=== PATIENT | female | born 1995 | race Caucasian/White ===

== ENCOUNTER 2023-04-09 18:09 | Emergency (ER) | payer BC, SELFPAY ==
[2023-04-09] MEDS: ZOFRAN ODT (ORALLY DISINTEGRATING) 4 MG PO (18:28)
[2023-04-09 18:55] LABS: % Basophils 0.3 % (0-2); % Eosinophils 0.2 % (0-6); % Immature Granulocytes 0.4 % (0-0.5); % Lymphocytes 16.4 % (20.5-51.1); % Monocytes 2.1 % (1.7-9.3); % Neutrophils 80.6 % (42.2-75.2); Absolute Basophils 0.1 10^3/uL (0-0.2); Absolute Immature Granulocytes 0.1 10^3/uL (0-0.05); Absolute Lymphocytes 2.7 10^3/uL (1.2-3.4); Absolute Monocytes 0.4 10^3/uL (0.1-0.6); Absolute Neutrophils 13.2 10^3/uL (1.4-6.5); Hemoglobin 13.3 g/dL (12.0-16.0); Mean Corp Hgb Conc. 33.3 g/dL (33.0-37.0); Mean Corpuscular Hgb 26.8 pg (27.0-31.0); Mean Corpuscular Volume 80.6 fL (81.0-99.0); Mean Platelet Volume 10.3 fL (7.4-10.4); Nucleated Red Blood Cells % 0 %; Platelet Count 320 10^3/uL (130-400); Red Blood Cell Count 4.96 10^6/uL (4.20-5.40); Red Cell Dist. Width 13.8 % (11.5-14.5); White Blood Cell Count 16.4 10^3/uL (4.8-10.8)
[2023-04-09 19:04] LABS: HCG, Serum Qualitative Screen Negative
[2023-04-09 19:11] LABS: ALT (SGPT) 16 U/L (0-35); AST (SGOT) 27 U/L (14-36); Albumin 4.5 g/dl (3.5-5.0); Alkaline Phosphatase 81 U/L (38-126); Blood Urea Nitrogen 11 mg/dl (7-17); Calcium 9.2 mg/dl (8.4-10.2); Carbon Dioxide 23 mmol/L (22-30); Chloride 102 mmol/L (98-107); Glucose 93 mg/dl (70-99); Lipase 272 U/L (23-300); Potassium 3.7 mmol/L (3.5-5.1); Sodium 134 mmol/L (135-145); Total Bilirubin 0.6 mg/dl (0.2-1.3); Total Protein 7.4 g/dl (6.3-8.2); eGFR > 60.00
--- NOTE | 2023-04-09 20:39 | ED.GENMED ---
History of Present Illness
General
Chief Complaint: Abdominal Pain
Source: patient
Exam Limitations: none
Time Seen by Provider: 04/09/23 20:16
Travel History
Have you had any contact with someone who has COVID-19?: No
Do you have any symptoms of coronavirus? Fever > 100 degrees, chills, cough, shortness of breath, sore throat, loss of taste or smell, muscle aches, or headache?: No
History of Present Illness
History of Present Illness:
This is a 27 year old female that comes in with c/o abd pain and back pain. States that at 1pm today she had abd cramping with some back pain. States that she took Prevacid before lunch like she was to do and she eat lunch. Patient was just switched
from Protonix to Prevacid. Then she started with this abd pain and she had diarrhea. States that she was nauseated. Patient went home and continue with the abd pain and back pain. States that the pain is on both sided and goes down her back.
States that she vomited again . Then they came here and she vomited in the waiting room and had diarrhea. States that she felt dizzy after this and vomited again. Denies any fever, chills, chest pain, SOB, headache, urinary burning.
Past History
Past History
ED Past Medical History: GERD, Hypercholesterolemia and Other (Gastroporesis)
ED Past Surgical History: None
Social History
Tobacco: Non-smoker
Alcohol: Occasional
Personal: Single
Living: with family
Employment: Employed
Review of Systems
Review of Systems
All Other Systems: ROS reviewed and negative except as documented in HPI and ROS
Constitutional: Reports no symptoms; Denies fever or chills
EENT: Reports no symptoms
Respiratory: Reports no symptoms; Denies cough or trouble breathing
Cardiac: Reports no symptoms; Denies chest pain
ABD/GI: Reports abdominal pain, nausea, vomiting and diarrhea
: Reports no symptoms; Denies dysuria, frequency or urgency
Musculoskeletal: Reports back pain
Skin: Reports no symptoms
Neurological: Reports dizzy (Lightheaded); Denies headache
Psychiatric: Reports no symptoms
Phy Exam
General Physical Exam
General Presentation: no apparent distress
General age: appears stated age
General Skin: warm and dry
General Habitus: normal
General Mental: alert
General Hydration: appears well hydrated
ENT Exam
ENT Exam: TM's normal, pharynx normal and neck supple
Eye Exam
Eye Exam: EOMI
Cardiovascular Exam
Cardiovascular Exam: regular rate/rhythm, no edema, no murmur and normal peripheral pulses
Pulmonary Exam
Pulmonary Exam: lungs clear, no respiratory distress, no rales, chest non tender, no crackles, no rhonchi, no wheezing and no cough
Gastrointestinal Exam
Gastrointestinal Exam: non tender, soft, no organomegaly, no pulsatile mass, non distended and other (Hypoactive bowel sounds)
Musculoskeletal Exam
Musculoskeletal Exam: full ROM and no edema
Skin Exam
Skin Exam: normal color, warm/dry, no rash and no petechia
Course
Orders/Labs/Results
Orders:
Orders
04/09/23 18:20
Test Result ONCE
04/09/23 18:27
Complete Blood Count/With Diff Urgent
Comprehensive Metabolic Panel Urgent
HCG, Serum Qualitative Screen Urgent
Lipase Urgent
Ondansetron Orally Disint [Zofran Odt (Orally Disintegrating)] 4 mg PO NOW STA
04/09/23 18:28
Ondansetron Orally Disint [Zofran Odt (Orally Disintegrating)] 4 mg .ROUTE .STK-MED ONE
04/09/23 20:38
CT Abd/pel W Iv And Oral Contr Urgent
Comment:
Reason For Exam: abd pain
0.9% Sodium Chloride 1000 ml [Nss] 1,000 ml IV BOLUS
Iohexol [Omnipaque] See Protocol PO NOW STA
Ketorolac [Toradol] 30 mg IV NOW STA
Ondansetron Injectable [Zofran] 4 mg IV NOW STA
04/09/23 22:19
Morphine Sulfate 2 mg .ROUTE .STK-MED ONE
04/09/23 22:55
Morphine Sulfate 2 mg IV NOW STA
04/09/23 22:58
Urinalysis Reflex To Culture Urgent
Date Specimen was Collected: 04/09/23
Time Specimen was Collected: 18:20
Urine Microscopic Reflex Cult Urgent
Urine Culture Urgent
BRYANNA Source: U
Specimen Description:
Date Specimen was Collected: 04/09/23
Time Specimen was Collected: 18:20
Abnormal Lab Results
04/09/23 04/09/23
18:27 22:58
WBC 16.4 H 10^3/uL
(4.8-10.8)
MCV 80.6 L fL
(81.0-99.0)
MCH 26.8 L pg
(27.0-31.0)
Abs Immat Gran (auto) 0.1 H 10^3/uL
(0-0.05)
Absolute Neuts (auto) 13.2 H 10^3/uL
(1.4-6.5)
Neutrophils % 80.6 H %
(42.2-75.2)
Lymphocytes % 16.4 L %
(20.5-51.1)
Sodium 134 L mmol/L
(135-145)
Urine Ketones 3+ A
(Negative)
Leukocyte Esterase Rfl 2+ A
(Negative)
Urine WBC (Reflex) 11-15 A /HPF
(0-5)
Urine Bacteria (Reflex) Many A
(Negative)
04/09/23 18:27
04/09/23 18:27
Leukocytosis, HCG negative, Urine questionable. Would wait for culture to treat.
Vital Signs
Initial and Last Documented VS:
Initial Vital Signs
Temp Pulse Resp Pulse Ox
98.9 F 123 20 99
04/09/23 18:14 04/09/23 18:14 04/09/23 18:14 04/09/23 18:14
Last Documented Vital Signs
Temp Pulse Resp BP Pulse Ox
98.9 F 97 20 128/79 97
04/09/23 18:14 04/09/23 23:43 04/09/23 18:14 04/09/23 23:43 04/09/23 23:43
MDM/Problems Addressed
Differential Diagnosis Includes:
Enteritis, GI viral syndrome
MDM/Problems Addressed:
This is a 27 year old female that comes in with c/o abd cramping, vomiting and diarrhea. States that this started at 1pm and she also has back pain.
Will check labs and get CT scan.
Back into see patient. Patient is feeling better. Explained that the CT states that there is some thickening of the serrato of the colon but this could be a enterocolitis or Viral syndrome. Patient urine is contaminate. With patient history of a
touchy stomach with medications. Will give patient a prescription for Zofran and have her follow up with the family doctor. Explained that a urine culture if pending and that if this would come back positive for infection she would be called. This
is most likely a viral illness. Patient to increase her water intake to 8-8oz glasses daily. Tylenol for any discomfort. Return with fever, increased or changing pain.
Chronic conditions affecting care:
GERD
Acute Exacerbation and/or Progression of Chronic Illness:
GERD
*Radiology
Radiology exam reviewed: radiology read reviewed (CT- Diffuse wall thickening of loops of small bowel and descending colon, which may represent an enterocolitis or viral syndrome. NO free air or free fluid. NO hydroureteronephrosis or
nephrolithiasis. )
*Pulse Oximetry
Patient hypoxic: no
*EKG
Interpreted by ED Provider?: NA
Rate: EKG- N/A
*Informatics Nurse Interpretation
Rate: Informatics Nurse- N/A
*Critical Care Note
Total Time (30-74mins, 75-104mins- exclusive of procedures): Not Applicable
ED Attending Note
-
Portions of this chart may have been created with voice recognition software.� Occasional wrong word or��sound alike� substitutions may have occurred due to the inherent limitations of voice recognition software.
Discharge Plan
Departure
Patient Disposition: Home (Routine Discharge)
Date of Disposition: 04/10/23
Time of Disposition: 00:36
Patient with high blood pressure during this ER visit?: No
Condition: Good
Covid-19: Not Applicable
Discharge Problem:
Abdominal pain, Viral syndrome
Instructions: Viral Syndrome (DC), Abdominal Pain
Prescriptions:
New
ondansetron 4 mg tablet,disintegrating
4 mg PO Q8H PRN (Reason: nausea and vomiting) Qty: 10 0RF
Referrals:
Mary Beth Agosto DO [Family Provider] - Follow up in 2-3 days
Activity Restrictions/Additional Instructions:
As discussed, your blood work shows that your White blood cell count is elevated. This can happen with stress and the vomiting. Your Urine is questionable for infection. If the culture comes back positive for infection you will be called and started
on an antibiotics. Your CT shows that there is some inflammation of the bowel and this is most likely a Viral syndrome. Please increase your water intake to 8-8oz glasses daily. Stay on alight diet as tolerated. Tylenol as needed for any discomfort.
IF YOU HAVE FEVER, INCREASED OR CHANGING PAIN OR YOU HAVE ANY OTHER CONCERNS PLEASE RETURN TO THE EMERGENCY ROOM.
Interventions
Interventions:
*Risk Screen - Suicide Last Done: 04/09/23 23:39
*General Assessment Last Done: 04/09/23 23:39
*Neglect/Abuse Screening Last Done: 04/09/23 23:39
*ED COVID-19 Vaccine History Last Done: 04/09/23 23:39
JE-Ktakmj-Pgbjkfmlmy Assessment Last Done: 04/09/23 23:02
[2023-04-09] MEDS: OMNIPAQUE 50 ML PO (21:06)
[2023-04-09] MEDS: ZOFRAN 4 MG IV (21:20)
[2023-04-09] MEDS: TORADOL 30 MG IV (21:20)
[2023-04-09] MEDS: NSS 1000 IV (21:21)
[2023-04-09 21:23] VITALS: BP 120/72
[2023-04-09] MEDS: MORPHINE SULFATE 2 MG IV (22:55)
[2023-04-09 23:05] LABS: Urine Albumin Trace (Neg - Trace); Urine Bilirubin Negative (Negative); Urine Character Clear (Clear); Urine Color Yellow; Urine Glucose Negative (Negative); Urine Ketone 3+ (Negative); Urine Leukocyte 2+ (Negative); Urine Nitrite Negative (Negative); Urine Occult Blood Negative (Negative); Urine Specific Gravity 1.015 (<1.030); Urine Urobilinogen Negative (Neg - 1+)
[2023-04-09 23:16] LABS: Urine Bacteria Many (Negative); Urine Red Blood Cell None Seen /HPF (0-2); Urine Squamous Cell >30 /LPF (Few)
[2023-04-09 23:43] VITALS: BP 128/79
== END 2023-04-10 01:00 | disposition home or self-care (01) ==
LOC: EMR 18:09
PROVIDERS: Emergency Medicine; EMERGENCY PHYSICIAN Emergency Medicine; FAMILY PHYSICIAN Student in an Organized Health Care Education/Training Program
DX: R10.9 Unspecified abdominal pain (principal); B34.9 Viral infection, unspecified
CPT/HCPCS: 99285; 96374; 96375 ×2; 96361; 74177; 80053; 81003; 81015; 83690; 84703; 85025; 87086; Q9967

== ENCOUNTER → 2023-05-07 07:03 | Outpatient (REF) | payer BC, SELFPAY | LOC: HWRAD 07:03 | PROVIDERS: ATTENDING PHYSICIAN Internal Medicine Gastroenterology; FAMILY PHYSICIAN Student in an Organized Health Care Education/Training Program | DX: R10.9 Unspecified abdominal pain (principal) | CPT/HCPCS: 76700 ==

== ENCOUNTER → 2023-07-02 08:40 | Outpatient (REF) | payer BC, SELFPAY | LOC: HWRAD 08:40 | PROVIDERS: ATTENDING PHYSICIAN Student in an Organized Health Care Education/Training Program | DX: N28.1 Cyst of kidney, acquired (principal) | CPT/HCPCS: 76775 ==

== ENCOUNTER → 2023-08-14 12:11 | Outpatient (REF) | payer BC, SELFPAY | LOC: HWRAD 12:11 | PROVIDERS: ATTENDING PHYSICIAN Internal Medicine Gastroenterology; FAMILY PHYSICIAN Student in an Organized Health Care Education/Training Program | DX: K31.84 Gastroparesis (principal); R10.9 Unspecified abdominal pain | CPT/HCPCS: 71046; 74018 ==

== ENCOUNTER 2023-12-04 13:47 | Emergency (ER) | payer BC, SELFPAY ==
[2023-12-04 13:52] VITALS: BP 129/92
--- NOTE | 2023-12-04 14:05 | ED.GENMED ---
ED Provider Triage
<REE Gonzalez - Last Filed: 12/04/23 14:11>
-
Patient seen by provider in Triage?: Seen in Triage
Attestation: A medical screening examination has been initiated by a qualified medical provider. Based on the assessment performed at this time, it has been determined that an emergent medical condition may exist and the patient has been informed
that further medical evaluation and possible additional diagnostic testing may be needed.
HPI: 28 yr old female c/o of left sided /flank pain worse at times for past 2 days. She describes this as stabbing pain which comes and goes. in addition pt has been having bladder issues for the past couple of weeks. She feels urgency but
denies dysuria. Denies any low back pain. c/o of nausea denies vomiting. denies any fever/ chills.
Pt has hx of left renal cyst (does see DR Tinoco ).
Pt saw pcp today who recommended she go to urology.
denies injury denies leg weakness , denies numbness/tingling to legs.
Currently has menses.
GENERAL: Alert , in no apparent distress
EYE: No visual abnormalities.
NECK: Trachea midline
ENT: No visible abnormalities.
LUNGS: No acute respiratory distress
NEUROLOGICAL: Alert and oriented
SKIN: Skin intact. No visible changes.
MUSCULOSKELETAL: Moving extremities normally
PSYCH: Normal and appropriate interaction.
This is a medical evaluation conducted in person to initiate diagnostic evaluation and provide initial therapeutics. Please see further documentation by the treating clinician.
History of Present Illness
<REE Gonzalez - Last Filed: 12/04/23 14:11>
General
Chief Complaint: Abdominal Pain
Time Seen by Provider: 12/04/23 14:53
<Ann Marie Shaw MD - Last Filed: 12/04/23 16:37>
General
Source: patient
Exam Limitations: none
Nursing documentation reviewed up to this point in time: agreed with
History of Present Illness
History of Present Illness:
The patient is a pleasant 28-year-old female who reports that for several weeks she has had pain on her left side. At times she reports it is difficult for her to make it to the toilet in time because when she feels an urge to urinate, the urine
just comes right away. Patient denies fevers, chills, nausea and vomiting. Patient reports that the pain on her left side intensifies at times and then gets better. Patient has an appointment with urology, Dr. Tinoco tomorrow in the office.
Patient reports that currently she feels like she has a migraine headache but she denies visual changes, weakness, numbness and rash.
Past History
<REE Gonzalez - Last Filed: 12/04/23 14:11>
Past History
ED Past Medical History: GERD, Hypercholesterolemia and Other (Gastroporesis)
ED Past Surgical History: None
Social History
Tobacco: Non-smoker
Alcohol: Occasional
Personal: Single
Living: with family
Employment: Employed
<Ann Marie Shaw MD - Last Filed: 12/04/23 16:37>
Social History
Drug: None
Family History
Family History: Other
Review of Systems
<Ann Marie Shaw MD - Last Filed: 12/04/23 16:37>
Review of Systems
Allergies reviewed?: Yes
All Other Systems: ROS reviewed and negative except as documented in HPI and ROS
Constitutional: Reports no symptoms
EENT: Reports no symptoms
Respiratory: Reports no symptoms
Cardiac: Reports no symptoms
ABD/GI: Reports no symptoms
: Reports flank pain and difficulty voiding
Musculoskeletal: Reports back pain
Skin: Reports no symptoms
Neurological: Reports no symptoms
Endocrine: Reports no symptoms
Hematologic/Lymphatic: Reports no symptoms
Phy Exam
<Ann Marie Shaw MD - Last Filed: 12/04/23 16:37>
Physical Exam
Physical Exam:
Physical Exam
General: no apparent distress, not acutely ill. Very well and comfortable appearing, smiling and conversational
Neck: supple. no meningeal signs. normal psoterior pharynx
Heart: s1/s2 regular rate and rhythm, no murmur. equal radial pulses.
Lungs: no acute respiratory distress. clear bilaterally
Abdomen: normal bowel sounds. not tender. no CVAT
Neuro: alert and oriented. no focal neurological deficits. Extraocular muscles intact. Steady gait.
Skin: no rash
Psychiatric: well kept. interactive and cooperative
Extremities: no edema. no calf tenderness. negative homans. good distal pulses
Course
<REE Gonzalez - Last Filed: 12/04/23 14:11>
Orders/Labs/Results
Orders:
Orders
12/04/23 13:57
Test Result ONCE
12/04/23 14:04
Complete Blood Count/With Diff Urgent
Comprehensive Metabolic Panel Urgent
HCG, Serum Qualitative Screen Urgent
Lipase Urgent
Urinalysis Reflex To Culture Urgent
Date Specimen was Collected: 12/04/23
Time Specimen was Collected: 13:57
Urine Microscopic Reflex Cult Urgent
12/04/23 14:10
CT Abd/pel Without Iv Or Oral Urgent
Comment:
Reason For Exam: left flank pain
12/04/23 15:49
Butalb/Acetaminophen/Caffeine [Fioricet] 1 tab PO NOW STA
Abnormal Lab Results
12/04/23
14:04
WBC 11.2 H 10^3/uL
(4.8-10.8)
MCV 78.0 L fL
(81.0-99.0)
MCH 25.4 L pg
(27.0-31.0)
MCHC 32.6 L g/dL
(33.0-37.0)
Absolute Neuts (auto) 6.9 H 10^3/uL
(1.4-6.5)
Absolute Lymphs (auto) 3.6 H 10^3/uL
(1.2-3.4)
Ur Occult Blood Reflex 3+ A
(Negative)
Urine Bacteria (Reflex) Few A
(Negative)
12/04/23 14:04
12/04/23 14:04
Vital Signs
Initial and Last Documented VS:
Initial Vital Signs
Temp Pulse Resp BP Pulse Ox
97.8 F 106 16 129/92 99
12/04/23 13:52 12/04/23 13:52 12/04/23 13:52 12/04/23 13:52 12/04/23 13:52
Last Documented Vital Signs
Temp Pulse Resp BP Pulse Ox
97.8 F 92 15 130/88 100
12/04/23 13:52 12/04/23 16:10 12/04/23 16:10 12/04/23 16:10 12/04/23 16:10
<Ann Marie Shaw MD - Last Filed: 12/04/23 16:37>
Orders/Labs/Results
Orders:
Orders
12/04/23 13:57
Test Result ONCE
12/04/23 14:04
Complete Blood Count/With Diff Urgent
Comprehensive Metabolic Panel Urgent
HCG, Serum Qualitative Screen Urgent
Lipase Urgent
Urinalysis Reflex To Culture Urgent
Date Specimen was Collected: 12/04/23
Time Specimen was Collected: 13:57
Urine Microscopic Reflex Cult Urgent
12/04/23 14:10
CT Abd/pel Without Iv Or Oral Urgent
Comment:
Reason For Exam: left flank pain
12/04/23 15:49
Butalb/Acetaminophen/Caffeine [Fioricet] 1 tab PO NOW STA
Abnormal Lab Results
12/04/23
14:04
WBC 11.2 H 10^3/uL
(4.8-10.8)
MCV 78.0 L fL
(81.0-99.0)
MCH 25.4 L pg
(27.0-31.0)
MCHC 32.6 L g/dL
(33.0-37.0)
Absolute Neuts (auto) 6.9 H 10^3/uL
(1.4-6.5)
Absolute Lymphs (auto) 3.6 H 10^3/uL
(1.2-3.4)
Ur Occult Blood Reflex 3+ A
(Negative)
Urine Bacteria (Reflex) Few A
(Negative)
12/04/23 14:04
12/04/23 14:04
Vital Signs
Initial and Last Documented VS:
Initial Vital Signs
Temp Pulse Resp BP Pulse Ox
97.8 F 106 16 129/92 99
12/04/23 13:52 12/04/23 13:52 12/04/23 13:52 12/04/23 13:52 12/04/23 13:52
Last Documented Vital Signs
Temp Pulse Resp BP Pulse Ox
97.8 F 92 15 130/88 100
12/04/23 13:52 12/04/23 16:10 12/04/23 16:10 12/04/23 16:10 12/04/23 16:10
<Ann Marie Shaw MD - Last Filed: 12/04/23 16:37>
MDM/Problems Addressed
Differential Diagnosis Includes:
Renal colic, pyelonephritis, UTI
MDM/Problems Addressed:
Patient presents with several weeks of left-sided pain as well as difficulty holding in her urine
<Ann Marie Shaw MD - Last Filed: 12/04/23 16:37>
*Radiology
Radiology exam reviewed: radiology read reviewed
*Pulse Oximetry
Patient hypoxic: no
*EKG
Interpreted by ED Provider?: NA
*Cloth Mercerizing Supervisor Interpretation
Rate: Cloth Mercerizing Supervisor- N/A
*Critical Care Note
Total Time (30-74mins, 75-104mins- exclusive of procedures): Not Applicable
Data Reviewed
Source: patient
<Ann Marie Shaw MD - Last Filed: 12/04/23 16:37>
Patient Management
Social determinants of health affecting care: Living situation and Strong social support
Escalation/DeEscalation of care consider admission/obs:
Patient has follow-up with urology tomorrow with Dr. Tinoco. CAT scan shows no definite kidney stone. Urine does not look suspicious for UTI. Patient appears well and comfortable. Fioricet given for patient's complaint of headache. Patient has
a nonfocal neurological exam and no meningismus.
ED Attending Note
<REE Gonzalez - Last Filed: 12/04/23 14:11>
-
Portions of this chart may have been created with voice recognition software.� Occasional wrong word or��sound alike� substitutions may have occurred due to the inherent limitations of voice recognition software.
Discharge Plan
Departure
Patient Disposition: Home (Routine Discharge)
Date of Disposition: 12/04/23
Time of Disposition: 15:50
Patient with high blood pressure during this ER visit?: Yes
Condition: Good
Discharge Problem:
Symptoms involving urinary system
Instructions: Flank Pain ED, BLOOD PRESSURE
Prescriptions:
No Action
ondansetron 4 mg tablet,disintegrating
4 mg PO Q8H PRN (Reason: nausea and vomiting) Qty: 10 0RF
Referrals:
Susan Souza MD [Family Provider] -
Activity Restrictions/Additional Instructions:
Please follow-up with Dr. Tinoco (urology) as scheduled tomorrow.
Interventions
Interventions:
*Risk Screen - Suicide Last Done: 12/04/23 13:52
*General Assessment Last Done: 12/04/23 13:52
*Neglect/Abuse Screening Last Done: 12/04/23 13:52
ED- Fall Risk Assessment Last Done: 12/04/23 16:09
*ED COVID-19 Vaccine History Last Done: 12/04/23 13:52
*Nursing Disposition Last Done: 12/04/23 16:13
IA-Oukqlf-Mrttbrdamn Assessment Last Done: 12/04/23 16:09
Discharge Date and Time
Discharge Date/Time: 12/04/23 16:14
Print Language: AUSTRIAN
[2023-12-04 14:21] LABS: % Basophils 0.4 % (0-2); % Eosinophils 0.3 % (0-6); % Immature Granulocytes 0.2 % (0-0.5); % Lymphocytes 32.4 % (20.5-51.1); % Monocytes 5.1 % (1.7-9.3); % Neutrophils 61.6 % (42.2-75.2); Absolute Basophils 0.1 10^3/uL (0-0.2); Absolute Lymphocytes 3.6 10^3/uL (1.2-3.4); Absolute Monocytes 0.6 10^3/uL (0.1-0.6); Absolute Neutrophils 6.9 10^3/uL (1.4-6.5); Hematocrit 39.3 % (37.0-47.0); Hemoglobin 12.8 g/dL (12.0-16.0); Mean Corp Hgb Conc. 32.6 g/dL (33.0-37.0); Mean Corpuscular Hgb 25.4 pg (27.0-31.0); Mean Platelet Volume 9.6 fL (7.4-10.4); Nucleated Red Blood Cells % 0 %; Platelet Count 366 10^3/uL (130-400); Red Blood Cell Count 5.04 10^6/uL (4.20-5.40); Red Cell Dist. Width 14.2 % (11.5-14.5); White Blood Cell Count 11.2 10^3/uL (4.8-10.8)
[2023-12-04 14:37] LABS: Urine Albumin Negative (Neg - Trace); Urine Bilirubin Negative (Negative); Urine Character Clear (Clear); Urine Color Yellow; Urine Glucose Negative (Negative); Urine Ketone Negative (Negative); Urine Leukocyte Negative (Negative); Urine Nitrite Negative (Negative); Urine Occult Blood 3+ (Negative); Urine Urobilinogen Negative (Neg - 1+)
[2023-12-04 14:38] LABS: HCG, Serum Qualitative Screen Negative
[2023-12-04 14:41] LABS: ALT (SGPT) 22 U/L (0-35); AST (SGOT) 31 U/L (14-36); Albumin 4.7 g/dl (3.5-5.0); Alkaline Phosphatase 81 U/L (38-126); Blood Urea Nitrogen 8 mg/dl (7-17); Calcium 9.7 mg/dl (8.4-10.2); Carbon Dioxide 26 mmol/L (22-30); Chloride 101 mmol/L (98-107); Glucose 97 mg/dl (70-99); Potassium 4.2 mmol/L (3.5-5.1); Sodium 141 mmol/L (135-145); Total Bilirubin 0.3 mg/dl (0.2-1.3); Total Protein 7.6 g/dl (6.3-8.2); eGFR > 60.00
[2023-12-04 14:53] LABS: Urine Bacteria Few (Negative); Urine Red Blood Cell 0-2 /HPF (0-2); Urine Squamous Cell 0-2 /LPF (Few); Urine White Cell 0-2 /HPF (0-5)
[2023-12-04 15:27] LABS: Lipase 268 U/L (23-300)
[2023-12-04] MEDS: FIORICET 1 TAB PO (16:03)
[2023-12-04 16:10] VITALS: BP 130/88
== END 2023-12-04 16:14 | disposition home or self-care (01) ==
LOC: EMR 13:47
PROVIDERS: Nurse Practitioner; EMERGENCY PHYSICIAN Emergency Medicine; FAMILY PHYSICIAN Family Medicine
DX: R39.15 Urgency of urination (principal); R10.9 Unspecified abdominal pain; R51.9 Headache, unspecified; R03.0 Elevated blood-pressure reading, without diagnosis of hypertension
CPT/HCPCS: 99284; 74176; 80053; 81003; 81015; 83690; 84703; 85025